=== PATIENT | male | born 1970 | race Caucasian/White ===

== ENCOUNTER 2022-10-19 18:21 | Emergency (ER) | payer BC, SELFPAY ==
--- NOTE | 2022-10-19 18:28 | ED.URI ---
HPI - URI/Sore Throat General Chief Complaint: Upper Respiratory Infection Stated Complaint: Sore Throat/Cough Source: patient and RN notes reviewed History of Present Illness HPI Narrative: 51 yo M presents to urgent care with complaints of a persistent cough since last Sunday. Pt states he had some congestion which has resolved. Pt reports it feels like mucous is sitting in the base of his throat that he can't cough up. Denies any fevers, chills, ear pain, sore throat, vomiting, SOB, or chest pain. Pt was seen at a clinic on Sunday where he was prescribed Augmentin with no relief. Related Data Home Medications Medication Instructions Recorded Confirmed chlorthalidone 25 mg tablet 25 mg PO DAILY 10/19/22 10/19/22 omeprazole 20 mg capsule,delayed 20 mg PO DAILY 10/19/22 10/19/22 release Allergies Allergy/AdvReac Type Severity Reaction Status Date / Time No Known Allergies Allergy Verified 10/19/22 18:33 Review of Systems Review of Systems: Pertinent positives and pertinent negatives per HPI. PMFSH Comments At the time of my signature, I reviewed and agree with the nursing past medical, surgical, social, and family history. There is no relevant family history pertinent to the patient complaint. Exam Narrative: GENERAL: This is a well-nourished, well-developed patient, in no apparent distress. HEAD: normocephalic, atraumatic. EYES: Sclera clear/white. Vision is grossly intact. EARS: External ears normal, auditory canals clear and without drainage, TMs normal without perforation. Hearing grossly intact. NOSE: External nose normal with no obvious nasal discharge, nares without redness, no rhinorrhea. THROAT: Mucous membranes moist, posterior pharynx clear. NECK: Neck supple, non-tender without lymphadenopathy, masses or thyromegaly. CARDIOVASCULAR: Regular rate and rhythm without murmurs, gallops, or rubs. RESPIRATORY: Clear to auscultation. Breath sounds equal bilaterally. No wheezes, rales, or rhonchi. SKIN: warm, intact with no suspicious lesions or rash, good texture and turgor. NEURO: awake, alert, and oriented to person, place and time. There were no obvious focal neurologic abnormalities. Course Course Level of Care: Express Care Visit Vital Signs Vital signs: Reviewed MDM - URI/Sore Throat MDM Narrative Medical decision making narrative: Take steroids as directed. May use the inhaler every 4-6 hours as needed for coughing. Increase fluids at home. Avoid any and all smoke. May use a humidifier in the bedroom. Increase your Vitamin C. Follow-up with personal physician in 2-5 days. Differential Diagnosis Differential diagnosis: Likely upper respiratory infection, sinusitis and bronchitis Critical Care Time Critical Care Time Critical Care Time: No Discharge Plan Discharge Clinical Impression: Bronchitis Patient Disposition: Home, Self-Care Condition: Stable Instructions: Antibiotic Form, Acute Bronchitis (ED) Additional Instructions: Take steroids as directed. May use the inhaler every 4-6 hours as needed for coughing. Increase fluids at home. Avoid any and all smoke. May use a humidifier in the bedroom. Increase your Vitamin C. Follow-up with personal physician in 2-5 days. Prescriptions: New benzonatate 200 mg capsule 200 mg PO TID PRN (Reason: cough) Qty: 20 0RF methylprednisolone [Medrol (Dago)] 4 mg tablets,dose pack 4 mg PO .per dose pack Qty: 21 0RF albuterol sulfate 90 mcg/actuation HFA aerosol inhaler 2 puff inhalation QID PRN (Reason: shortness of breath or wheezing) Qty: 8.5 0RF No Action chlorthalidone 25 mg tablet 25 mg PO DAILY omeprazole 20 mg capsule,delayed release(DR/EC) 20 mg PO DAILY Follow-up/Referrals: PHYSICIAN NOT ON STAFF,NONSTAFF [Primary Care Provider] - Time of Disposition: 18:44
[2022-10-19 18:31] VITALS: BP 148/100; PULSE 102; RESP 18; TEMP 37.4; O2SAT 99
== END 2022-10-19 18:46 | disposition home or self-care (01) ==
PROVIDERS: Emergency Provider Nurse Practitioner Family
DX: J40 Bronchitis, not specified as acute or chronic (principal)
CPT/HCPCS: 99203; G0463

== ENCOUNTER 2023-11-15 12:14 | Emergency (ER) | payer OTHER, SELFPAY ==
--- NOTE | ~2023-11-15 | XR_ITS ---
EXAMINATION: XR wrist LT min 3V DATE: 11/15/2023 12:47 INDICATION: Left wrist pain and swelling. TECHNIQUE: 4 views of left wrist were obtained. COMPARISON: None. FINDINGS: Bone alignment is normal. No fracture. There is moderate osteoarthritis of triscaphe joint and first carpometacarpal joint. IMPRESSION: 1. Polyarticular osteoarthritis. Reviewed, dictated and finalized at location A.
[2023-11-15 12:28] VITALS: BP 155/98; PULSE 85; RESP 14; TEMP 37.4; O2SAT 98
--- NOTE | 2023-11-15 12:38 | ED.EXTPRO ---
HPI - Extremity Problem General Chief complaint: Extremity Injury, Lower Stated complaint: Left Wrist Pain/Injury Time Seen by Provider: 11/15/23 12:31 Source: patient and RN notes reviewed Mode of arrival: ambulatory Limitations: no limitations History of Present Illness HPI Narrative: Patient presents today complaining of pain and swelling to the left wrist x3 days. Denies any known injury or trauma. No numbness or tingling. Currently rates pain 4/10, which increases with movement. He has been using a Velcro brace, ibuprofen, and ice with mild relief. No repetitive movements at work or home except typing. Patient does lift some hand weights at work on his break, but has been doing this for some time. Related Data Home Medications Medication Instructions Recorded Confirmed chlorthalidone 25 mg tablet 25 mg PO DAILY 10/19/22 11/15/23 omeprazole 20 mg capsule,delayed 20 mg PO DAILY 10/19/22 10/19/22 release Allergies Allergy/AdvReac Type Severity Reaction Status Date / Time No Known Allergies Allergy Verified 10/19/22 18:33 Review of Systems Review of Systems: CONSTITUTIONAL: Denies body aches, fever, chills, or sweats. EYES: Denies visual changes, redness, or discharge. ENT: Denies rhinorrhea, congestion, sore throat, or otalgia. CARDIOVASCULAR: Denies chest pain, palpitations, or edema. RESPIRATORY: Denies cough or dyspnea. GASTROINTESTINAL: Denies abdominal pain, nausea, vomiting, or diarrhea. GENITOURINARY: Denies dysuria or hematuria. SKIN: Denies rash, itching, or wounds. MUSCULOSKELETAL: Denies back pain, or myalgia.+ left wrist pain and swelling NEUROLOGIC: Denies headache, numbness, tingling, or weakness. PSYCH: Denies depression or anxiety. PMFSH Comments At time of signature, I have reviewed and agree with nursing past medical, surgical, social and family history unless otherwise noted. Please see nursing chart for further information. There is no relevant family history pertinent to the presenting complaint Exam Narrative: GENERAL: Well-appearing, well-nourished, and in no acute distress. HEAD: Normocephalic, atraumatic. EYES: EOMI. No redness or drainage. Conjunctivae normal. ENT: Mucous membranes pink and moist. NECK: Normal AROM. CHEST: No respiratory distress. EXTREMITIES: Left wrist: Soft tissue Tenderness and mild swelling to the area just proximal to the ulnar styloid process. No erythema or ecchymosis. No tenderness to the remainder of the wrist or hand. Pain increases with range of motion in any direction. Distal sensation intact. Capillary refill normal. Radial pulse normal. SKIN: Warm, dry, no rash. Capillary refill normal. Normal skin turgor. NEURO: No focal deficits. Alert and oriented x3. Gait steady. PSYCH: Normal affect. No signs of depression or anxiety. Course Course Level of Care: Express Care Visit Vital Signs Vital signs: Vital Signs Temperature 99.4 F 11/15/23 12:28 Pulse Rate 85 11/15/23 12:28 Respiratory Rate 14 11/15/23 12:28 Blood Pressure 155/98 H 11/15/23 12:28 Pulse Oximetry 98 11/15/23 12:28 Oxygen Delivery Room Air 11/15/23 12:28 Temperature 99.4 F 11/15/23 12:28 Pulse Rate 85 11/15/23 12:28 Respiratory Rate 14 11/15/23 12:28 Blood Pressure 155/98 H 11/15/23 12:28 Pulse Oximetry 98 11/15/23 12:28 Oxygen Delivery Room Air 11/15/23 12:28 Reviewed MDM - Extremity (Nontraumatic) MDM Narrative Medical decision making narrative: Wrist x-ray negative. Recommend continuing brace and anti-inflammatories. Follow-up with orthopedics if symptoms persist. Patient agrees with plan. Anticipatory guidance given. Differential Diagnosis Differential diagnosis: Likely other (Tendinitis, ligamentous injury, fracture) Imaging Data Radiologist's impression: ITS Impressions Wrist X-Ray 11/15/23 12:48 IMPRESSION: 1. Polyarticular osteoarthritis. Critical Care Time Critic
== END 2023-11-15 13:15 | disposition home or self-care (01) ==
PROVIDERS: Emergency Provider Nurse Practitioner; PCP Nurse Practitioner
DX: M25.532 Pain in left wrist (principal); I10 Essential (primary) hypertension; K21.9 Gastro-esophageal reflux disease without esophagitis; R73.03 Prediabetes
CPT/HCPCS: 73110; 99213; G0463

== ENCOUNTER 2024-05-27 13:05 | Emergency (ER) | payer OTHER, SELFPAY ==
--- NOTE | ~2024-05-27 | XR_ITS ---
XR foot LT min 3V Ordering provider: Belia Clancy NP History: . pain medial aspect . Comparison: None. FINDINGS: BONES: No acute fracture or dislocation. JOINT SPACES: Normal. No tarsal coalition. SOFT TISSUES: Normal. Calcaneus spur. IMPRESSION: No acute osseous abnormality left foot. Reviewed, dictated and finalized at location A. MAL MOLDER
[2024-05-27 13:14] VITALS: BP 142/89; PULSE 106; RESP 20; TEMP 36.8; O2SAT 98
--- NOTE | 2024-05-27 13:42 | ED_ITS ---
HPI - Extremity Injury (Lower) General Chief Complaint: Extremity Injury, Lower Stated Complaint: left foot injury Time Seen by Provider: 05/27/24 13:42 Source: patient, RN notes reviewed and old records reviewed Mode of arrival: ambulatory Limitations: no limitations History of Present Illness HPI Narrative: 53 year old male presents to [facility] care with complaints of pain and edness and swelling to the left inner foot since the 4th. He reports that he was sitting in a sauna and when he stepped down to go out of the sauna he felt a tweek in his left inner ankle and since he has had the inner foot symptoms. Patient eports that he has applied ice to his left inner foot, taken Ibuprofen and has been wearing a boot to his foot for added support. Patient reports no history of gout. MD complaint: ankle injury (left medial) and foot injury (left media) Onset (ago): day(s) (05/24/2024) Type of Injury: other (just stepped down no known twisting of foot or ankle) Severity scale (1-10): 4 Exacerbating factors: weight bearing Treatments prior to arrival: cold therapy, NSAIDS and other (wearing boot) Related Data Home Medications ?Medication ?Instructions ?Recorded ?Confirmed ?Last Taken ?Type omeprazole 20 mg capsule,delayed 20 mg PO DAILY 10/19/22 05/27/24 Unknown History release chlorthalidone 25 mg tablet 25 mg PO DAILY 05/27/24 05/27/24 Unknown History omeprazole 40 mg capsule,delayed 40 mg PO DAILY 05/27/24 Unknown History release Allergies Allergy/AdvReac Type Severity Reaction Status Date / Time No Known Allergies Allergy Verified 05/27/24 13:19 Review of Systems Review of Systems: CONSTITUTIONAL: Denies fever, chills, or sweats. EYES: Denies visual changes, redness, or discharge. ENT: Denies rhinorrhea, congestion, sore throat, or otalgia. CARDIOVASCULAR: Denies chest pain, palpitations, or edema. RESPIRATORY: Denies cough or dyspnea. GASTROINTESTINAL: Denies abdominal pain, nausea, vomiting, or diarrhea. GENITOURINARY: Denies dysuria or hematuria. SKIN: Denies rash or itching. MUSCULOSKELETAL: Denies back pain, joint pain, or myalgia. NEUROLOGIC: Denies headache, numbness, or weakness. PSYCHIATRIC: Denies anxiety or depression. All systems reviewed & are unremarkable except as noted in HPI and below PMFSH Past Medical History Medical History Pre-diabetes Hypertension GERD (gastroesophageal reflux disease) Surgical History Surgical History Hx of laparoscopic gastric banding had reversal done also H/O vasectomy Social History Social History Smoking status: Never smoker Alcohol intake: unknown Substance use: unknown Living arrangements: with family Gender identity (if verbalized by the patient): Male Comments At time of signature, agree with nursing past medical, surgical, social and family history. There is no relevant family history pertinent to the presenting complaint Exam Narrative: GENERAL: Well-appearing, well-nourished,obese, and in no acute distress. HEAD: Normocephalic, atraumatic. EYES: PERRLA and EOMI. ENT: Nares clear, no rhinorrhea or epistaxis. Mucous membranes moist.TM's normal throat pink with no swelling NECK: Supple. no lymphadenopathy CHEST: Clear to auscultation. No respiratory distress. no cough noted, SAO2 98% on room air HEART: Regular rate and rhythm. No murmur heard. Normal peripheral pulses. ABDOMEN: Soft, nontender, nondistended, normal active bowel sounds. EXTREMITIES: Normal range of motion. No edema.Exception noted to left medial foot with some redness swelling and discomfort, strong left pedal pulse present, Patient has full mobility of his left foot and ankle, denies any pain to ankle area or any pain to the back of his ankle. Patient reports no tingling or numbness to his left foot or any warmth to foot noted. SKIN: Warm, dry, no rash. NEURO: No focal deficits. Alert and oriented x3. Course Course Emergency Course: Patient is aware of diagnosis, understands and agrees to treatment plan.? Anticipatory guidance given.? Patient agrees to follow-up as directed and is aware of reasons to seek care at the emergency department. Portions of this record may have been created with voice recognition software Level of Care: Express Care Visit Vital Signs Vital signs: Vital Signs Temperature 36.8 C 05/27/24 13:14 Pulse Rate 106 H 05/27/24 13:14 Respiratory Rate 20 05/27/24 13:14 Blood Pressure 142/89 H 05/27/24 13:14 Pulse Oximetry 98 05/27/24 13:14 Oxygen Delivery Room Air 05/27/24 13:14 Temperature 36.8 C 05/27/24 13:14 Pulse Rate 106 H 05/27/24 13:14 Respiratory Rate 20 05/27/24 13:14 Blood Pressure 142/89 H 05/27/24 13:14 Pulse Oximetry 98 05/27/24 13:14 Oxygen Delivery Room Air 05/27/24 13:14 Reviewed MDM - Extremity Injury (Lower) Differential Diagnosis Differential diagnosis: Likely ankle sprain and strain and other (foot fracture foot sprain or strain, swelling left medial foot, pain left medial foot.) Medical Records Attestation: I reviewed the patient's medical records. Imaging Data Attestation: I personally reviewed and interpreted this imaging study as follows: My impression: no acute osseous abnormality left foot, calcaneus spur noted Radiologist's impression: [place] [address] XRay Report Signed Patient: Lewis Bowen : 1970 MR#: [id number] Age: 53 Acct:[id number] Loc: [facility] ADM Date: 05/27/24Attending Dr: Ordering Physician: Belia Clancy APRN Date of Service: 05/27/24 Procedure(s): XR foot LT min 3V Accession Number(s): [id number] cc: Taurus Hood; Belia Clancy APRN~ XR foot LT min 3V Ordering provider: Belia Clancy NP History: . pain medial aspect . Comparison: None. FINDINGS: BONES: No acute fracture or dislocation. JOINT SPACES: Normal. No tarsal coalition. SOFT TISSUES: Normal. Calcaneus spur. IMPRESSION: No acute osseous abnormality left foot. Reviewed, dictated and finalized at location A. GNA Please be advised this is a medical document. It is intended for [id number] communication. It is written in medical language and may contain unfamiliar abbreviations or verbiage. Medical documents are intended to carry relevant information, facts as evident, and the clinical opinion of the practitioner at the time of the encounter. This report may have been done utilizing a voice recognition system. Attempts have been made to correct errors. However, there may be uncorrected grammatical, spelling, and recognition errors present. The file time of this note does not necessarily represent the time the patient was seen. Dictated By: Joe Casey MD 05/27/24 1340 Signed By: <Electronically signed by Joe Casey MD in OV> Critical Care Time Critical Care Time Critical Care Time: No Discharge Plan Discharge Clinical Impression: Strain of foot, left Qualifiers: Encounter type: initial encounter Qualified Code(s): S96.912A - Strain of unspecified muscle and tendon at ankle and foot level, left foot, initial encounter Patient Disposition: Home, Self-Care Condition: Stable Instructions: Arthralgia (ED) Additional Instructions: Elastic wrap or orthopedic splint as directed for comfort for the next 5-7 days Tylenol for lesser pain Ibuprofen regularly for the next 2-3 days for the inflammation Follow-up with orthopedic surgeon if continued problems Follow-up with PCP if further problems or concerns Ice to the area 20-30 minutes 4-6 times a day Elevate above heart\If your symptoms persist, change or worsen significantly before you can contact your personal physician then please, without delay, go to the emergency department for further evaluation. Follow-up with PCP in 7-10 days or sooner if needed Follow up with PCP soon in regards to your blood pressure which is elevated above threshold for referral. Blood pressure above 120/80 may indicate pre- hypertension. 142/89 Patient Language: Sinhala Prescriptions: No Action omeprazole 20 mg capsule,delayed release(DR/EC) 20 mg PO DAILY omeprazole 40 mg capsule,delayed release(DR/EC) 40 mg PO DAILY chlorthalidone 25 mg tablet 25 mg PO DAILY Follow-up/Referrals: Taurus Hood [Primary Care Provider] - Time of Disposition: 13:52 Quality [place] Scale Eyes: Open Verbal: Oriented and Alert Motor: Follows Commands [place] Total Score: 15
== END 2024-05-27 13:58 | disposition home or self-care (01) ==
PROVIDERS: Emergency Provider Registered Nurse
DX: S96.912A Strain of unspecified muscle and tendon at ankle and foot level, left foot, initial encounter (principal); X50.1XXA Overexertion from prolonged static or awkward postures, initial encounter; R73.03 Prediabetes; I10 Essential (primary) hypertension; K21.9 Gastro-esophageal reflux disease without esophagitis
CPT/HCPCS: 73630; 99213; G0463

== ENCOUNTER 2024-07-11 11:30 | Emergency (ER) | payer OTHER, SELFPAY ==
[2024-07-11 11:39] VITALS: BP 140/93; PULSE 93; RESP 18; TEMP 36.6; O2SAT 99
--- NOTE | 2024-07-11 11:46 | ED_ITS ---
HPI - URI/Sore Throat General Chief Complaint: Upper Respiratory Infection Stated Complaint: Sore Throat/Cough/Left Ear Pain Time Seen by Provider: 07/11/24 11:33 Source: patient Mode of arrival: ambulatory Limitations: no limitations History of Present Illness HPI Narrative: Patient is a 53-year-old male who presents with sore throat and left ear pain for 5 days. Patient also has sinus congestion and drainage. Has taken [id number] meds once. Denies any fever, chills, nausea vomiting, diarrhea. Related Data Home Medications ?Medication ?Instructions ?Recorded ?Confirmed ?Last Taken ?Type omeprazole 20 mg capsule,delayed 20 mg PO DAILY 10/19/22 05/27/24 Unknown History release chlorthalidone 25 mg tablet 25 mg PO DAILY 05/27/24 07/11/24 Unknown History omeprazole 40 mg capsule,delayed 40 mg PO DAILY 05/27/24 07/11/24 Unknown History release Allergies Allergy/AdvReac Type Severity Reaction Status Date / Time No Known Allergies Allergy Verified 07/11/24 11:47 Review of Systems Review of Systems: All systems reviewed & are unremarkable except as noted in HPI and below Constitutional: Constitutional: Denies chills, Denies fatigue, Denies fever(s), Denies headache(s), Denies malaise and Denies weakness Eyes: Eyes: Denies blurry vision, Denies itchy eyes and Denies loss of vision ENT: Reports otalgia, Denies headache(s), Reports nasal congestion, Denies sinus pain and Reports sore throat Cardiovascular: Cardiovascular: Denies chest pain, Denies irregular heart rhythm and Denies dyspnea Respiratory: Respiratory: Denies cough and Denies dyspnea Gastrointestinal: Gastrointestinal: Denies abdominal pain, Denies diarrhea, Denies nausea and Denies vomiting Musculoskeletal: Musculoskeletal: Denies back pain, Denies myalgias and Denies arthralgias Integumentary/Breasts: Skin/Breast: Denies pruritus and Denies rash Neurologic: Denies headache(s), Denies loss of vision and Denies weakness Psychiatric: Psychiatric: Reports no additional psychiatric complaints Endocrine: Endocrine: Denies fatigue Allergic/Immunologic: Allergic/Immunologic: Denies itchy eyes PMFSH Past Medical History Medical History Pre-diabetes Hypertension GERD (gastroesophageal reflux disease) Surgical History Surgical History Hx of laparoscopic gastric banding had reversal done also H/O vasectomy Social History Social History Smoking status: Never smoker Alcohol intake: unknown Substance use: unknown Living arrangements: with family Gender identity (if verbalized by the patient): Male Comments At time of signature, agree with nursing past medical, surgical, social and family history. There is no relevant family history pertinent to the presenting complaint. Exam Const: General: cooperative, healthy appearing, comfortable, no acute distress and well nourished Nutritional Appearance: well nourished Orientation/consciousness: patient oriented x3 Limitations: no limitations HENMT: Head: normal to inspection, normocephalic and atraumatic Ears: hear ing grossly normal bilaterally, external ears normal, TM's normal bilaterally, EAC's normal and no periauricular adenopathy Face/Nose/Sinus: Normal external nose present, Abnormal mucous membranes and turbinates present erythematous bilateral and diffuse, normal facial exam, sinuses nontender and face symmetric Face and sinus: normal facial exam, sinuses nontender and face symmetric Mouth: Yes Normal oral and palatal mucosa present, Yes lip normal, Yes tongue normal, Yes Normal salivary glands and ducts present, Yes oropharynx normal and Yes moist mucous membranes Teeth and gingiva: dentition normal Throat: posterior oropharynx normal, tonsils normal and uvula midline Eyes: General: appearance normal, both eyes and all related structures Alignment and Position: alignment normal and position normal Periorbital: periorbital findings normal Eyelids: eyelids normal Pupils: Equal, round and reactive pupils present Neck: Neck: normal visual inspection, full ROM, no lymphadenopathy and supple Chest: Chest palpation & inspection: normal inspection of the chest and normal palpation of entire chest wall Resp: Effort & Inspection: normal respiratory effort and able to speak in complete sentences Auscultation: clear to auscultation bilaterally, no crackles, no rales, no rhonchi and no wheezes Cardio: Rate: regular rate Rhythm: regular rhythm Heart sounds: S1 normal heart sound present and S2 normal heart sound present GI: Inspection: normal to inspection Skin: General skin exam: normal color and no rashes or lesions noted Neuro: General: patient oriented x3 and moves all extremities Cranial nerves: Yes Equal, round and reactive pupils present Speech: normal speech Gait exam (Neuro): Normal gait present Extrem: General: normal to inspection, full ROM and no edema Psych: Appearance: grossly normal and well kempt Mental Status: mental status grossly normal Speech and movement: Normal speech and movement present Affect: normal affect Attitude: cooperative Thought process: Normal thought process present Course Course Emergency Course: Discharge instructions reviewed with patient, as well as provided in writing per nursing staff. The instructions also include specific and strict return/GO TO THE ER as well as f/u information. All questions have been answered, and the patient deny any further questions with discharge and discharge plan. Portions of this record may have been created with voice recognition software Level of Care: Express Care Visit Vital Signs Vital signs: Vital Signs Temperature 36.6 C 07/11/24 11:39 Pulse Rate 93 07/11/24 11:39 Respiratory Rate 18 07/11/24 11:39 Blood Pressure 140/93 H 07/11/24 11:39 Pulse Oximetry 99 07/11/24 11:39 Oxygen Delivery Room Air 07/11/24 11:39 Temperature 36.6 C 07/11/24 11:39 Pulse Rate 93 07/11/24 11:39 Respiratory Rate 18 07/11/24 11:39 Blood Pressure 140/93 H 07/11/24 11:39 Pulse Oximetry 99 07/11/24 11:39 Oxygen Delivery Room Air 07/11/24 11:39 Reviewed MDM - URI/Sore Throat MDM Narrative Medical decision making narrative: Pt well hydrated appearing, in no respiratory distress, hemodynamically stable. Recommend supportive care. The patient is stable at time of discharge the clinical impression was discussed and the patient was given the opportunity to ask questions, which were addressed as completely as possible given the information available at present. Anticipatory guidance and return to care precautions were discussed and the importance of primary care follow-up was stressed and encouraged. The patient voiced understanding of the plan, indications to return, and the need for follow-up. Differential diagnosis considered: Bronchitis, Baez virus, strep pharyngitis, allergic rhinitis, upper respiratory tract infection, sinusitis, rhinosinusitis, nasopharyngitis. viral pharyngitis, otitis media, otitis externa, otitis effusion, foreign body, cerumen impaction, viral syndrome, and influenza.? Exam findings show no acute concerns or changes; patient is non-toxic appearing and is in no distress.? Patient is appropriate for outpatient treatment and follow-up.? Medical Records Attestation: I reviewed the patient's medical records. Discharge Plan Discharge Additional Instructions: Your symptoms are likely due to a viral illness, which is not treated with antibiotics. Viral symptoms can be present for up to a few weeks. -For pain/fever, you may take: Tylenol 650-1000mg by mouth every 4-6 hours. Do not exceed 4000mg in 24 hours. Advil (Ibuprofen) 600 mg by mouth every 6 hours. Do not exceed 2400mg in 24 hours. 8 AM: Tylenol 11 AM: Ibuprofen 2 PM: Tylenol 5 PM: Ibuprofen 8 PM: Tylenol 11 PM: Ibuprofen 2 AM: Tylenol 5 AM: Ibuprofen -Antihistamine medication such as Benadryl/Zyrtec at night and Claritin/Lauren during the day can help improve symptoms. -Use Flonase twice a day for 5 days then daily to help reduce the inflammation and dry up your sinuses. -You can also use Sudafed behind the pharmacy counter(12 or 24 hour). Be sure to drink plenty of water with these medications at least 8 ounces with every dose and it is important to drink 8 to 10 glasses of water per day. Water is a natural decongestant -Eat and drink things that are easy to swallow, like tea or soup, or popsicles. -Oral rinses such as: Salt water gargles and/or may use topical anesthetic (eg. Chloraseptic spray) or lozenges to relieve dryness or throat pain). -Frequent hand washing or hand social sciences department chair is one of the best ways to prevent spread of infection. -Using a vaporizer or humidifier at night will also help thin secretions and help with coughing up phlegm. Call your Primary Care Doctor and make a follow-up appointment in 3 days. If your cough worsens, you develop a fever greater than 103, you develop shaking chills, a fast heartbeat, trouble breathing and/or feel you are are breathing much faster than usual, call your Primary Care Doctor or go to the ER. Your blood pressure was elevated above 120/80 today at Urgent Care. This puts you above the threshold for follow up visit with a primary care provider. High blood pressure does not usually cause any symptoms, however it may lead to kidney failure, stroke, heart disease just to name a few if untreated . Many people are anxious when seeing a provider or nurse. As a result, you are not diagnosed with hypertension at this time unless your blood pressure is persistently high at two office visits at least one week apart. Some things that can help lower blood pressure are lifestyle modifications, such as light exercise, decreased salt in diet, and weight loss. It is important to follow up with a PCP about this within 1 week. Patient Language: Tristanian Prescriptions: New promethazine-DM 6.25-15 mg/5 mL syrup 5 ml PO Q4-6H PRN (Reason: cough) Qty: 118 0RF fluticasone propionate [Flonase Allergy Relief] 50 mcg/actuation spray,suspension 1 spray intranasal DAILY Qty: 16 0RF Rx Instructions: administer into each nostril No Action omeprazole 20 mg capsule,delayed release(DR/EC) 20 mg PO DAILY omeprazole 40 mg capsule,delayed release(DR/EC) 40 mg PO DAILY chlorthalidone 25 mg tablet 25 mg PO DAILY Follow-up/Referrals: Erwin,Vicky Bass [Primary Care Provider] - 3 Days Time of Disposition: 12:11
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
== END 2024-07-11 12:19 | disposition home or self-care (01) ==
PROVIDERS: Emergency Provider Nurse Practitioner Family; PCP Nurse Practitioner
DX: J06.9 Acute upper respiratory infection, unspecified (principal); I10 Essential (primary) hypertension
CPT/HCPCS: 99213; G0463